=== PATIENT | male | born 1945 | race Caucasian/White ===

== ENCOUNTER 2017-07-10 20:03 | Emergency (ER) | payer MEDICARE ==
[~2017-07-10] VITALS: Ht 185.4 cm; Wt 136.4 kg
[~2017-07-10 20:03] MED LIST: ALTACE10 MG PO; AMLODIPINE5 MG PO; ASPIRIN 8181 MG PO; AUGMENTIN875TAB PO; FINASTERIDE5 MG PO; FISH OIL1000 MG PO; FLOMAX0.4 M1 PO; FLONASE NASAL50 MCG; METOPROL TAR100 MG PO; NAPROSYN500 MG PO; NITROGLYCER0.4 MG SL; OMEPRAZOLE20 M1 PO; SIMVASTATIN20 MG PO
[2017-07-11 01:36] LABS: HEMATOCRIT 44.7 % (39.0-50.0); HEMOGLOBIN 14.7 g/dl (14.0-18.0); IMMATURE GRANULOCYTES 0.5 % (0.0-1.0); MEAN CELL VOLUME 89.9 fL CALC (80.0-100.0); MEAN CORPUSCULAR HGB 29.6 pG CALC (26.0-32.0); MEAN CORPUSCULAR HGB CONC 32.9 g/L CALC (32.0-36.0); NEUT# 11.35 thou/uL (1.82-7.42); RED BLOOD COUNT 4.97 mill/uL (4.70-6.10); RED CELL DISTRI WIDTH 13.2 % (11.5-15.5)
[2017-07-11 02:05] LABS: ALBUMIN 4.7 g/dL (3.2-5.0); ALKALINE PHOSPHATASE 75 u/l (38-126); ANION GAP 19 (6-22 (CALC)); BUN 29 mg/dL (8-23); BUN/CREATININE RATIO 35 (12-20 (CALC)); CALCIUM 9.3 mg/dL (8.4-10.2); CARBON DIOXIDE 26 mmol/l (22-30); CHLORIDE 104 mmol/l (95-108); CREATININE 0.8 mg/dL (0.7-1.3); GFR > 60 ML/MIN (>=60 (CALC)); GFR FOR AFR.AMER. > 60 ML/MIN (>=60 (CALC)); GLUCOSE 129 mg/dL (82-115); POTASSIUM 4.9 mmol/l (3.5-5.1); SGOT/AST 46 u/l (19-48); SGPT/ALT 57 u/l (11-66); SODIUM 143 mmol/l (137-146); TOTAL PROTEIN 7.4 g/dL (6.3-8.2)
[2017-07-11 02:16] VITALS: BP 150/82
== END 2017-07-11 02:16 | disposition short-term general hospital (02) ==
LOC: ED 20:03
PROVIDERS: Emergency Medicine
DX: S22.41XA Multiple fractures of ribs, right side, initial encounter for closed fracture (principal); I72.3 Aneurysm of iliac artery; I10 Essential (primary) hypertension; I25.2 Old myocardial infarction; V19.3XXA Pedal cyclist (driver) (passenger) injured in unspecified nontraffic accident, initial encounter; Y93.55 Activity, bike riding; Y92.410 Unspecified street and highway as the place of occurrence of the external cause

== ENCOUNTER 2018-07-29 09:26 | Emergency (ER) | payer MEDICARE, BC ==
[~2018-07-29] VITALS: Ht 185.4 cm; Wt 136.4 kg
[~2018-07-29 09:26] MED LIST changes: -FLOMAX0.4 M1 PO; +TAMSULOSIN0.4 MG PO
[2018-07-29] MEDS ORDERED: VOLTAREN1%GEL TOP ×2 (10:16→10:25)
[2018-07-29] MEDS ORDERED: CYCLOBENZAPR5 MG PO ×2 (10:16→10:24)
[2018-07-29] MEDS ORDERED: ATORVASTATIN CA40 MG PO (10:22)
[2018-07-29] MEDS ORDERED: CYANOCOBAL1000 MCG/M IJ (10:24)
[2018-07-29 10:30] VITALS: BP 135/75
== END 2018-07-29 10:30 | disposition home or self-care (01) ==
LOC: ED 09:26
DX: S39.012A Strain of muscle, fascia and tendon of lower back, initial encounter (principal); M54.5 Low back pain; G89.29 Other chronic pain; I10 Essential (primary) hypertension; K21.9 Gastro-esophageal reflux disease without esophagitis; I25.2 Old myocardial infarction; X58.XXXA Exposure to other specified factors, initial encounter; Z95.5 Presence of coronary angioplasty implant and graft

== ENCOUNTER 2022-08-08 19:20 | Emergency (ER) | payer MEDICARE, BC ==
[~2022-08-08] VITALS: Ht 185.4 cm; Wt 136.3 kg
[~2022-08-08 19:20] MED LIST changes: +ATORVASTATIN CA40 MG PO; +CYANOCOBAL1000 MCG/M IJ; +CYCLOBENZAPR5 MG PO; +VOLTAREN1%GEL TOP
[2022-08-08 20:47] LABS: URINE BILIRUBIN - DIPSTICK NEGATIVE (NEGATIVE); URINE BLOOD DIPSTICK NEGATIVE (NEGATIVE); URINE COLOR YELLOW; URINE GLUCOSE - DIPSTICK NEGATIVE (NEGATIVE); URINE KETONE NEGATIVE (NEGATIVE); URINE LEUK ESTERASE NEGATIVE (NEGATIVE); URINE PH 5.5 (4.5-8.0); URINE PROTEIN - DIPSTICK NEGATIVE (NEG-TRACE); URINE SPECIFIC GRAVITY >=1.030; URINE UROBILINOGEN - DIPSTICK 0.2 E.U./dL (0.2)
[2022-08-08 20:48] LABS: BASO% 0.3 % (0-3); EOS% 4.1 % (0-8); HEMATOCRIT 38.8 % (39.0-50.0); HEMOGLOBIN 13.1 g/dl (14.0-18.0); IMMATURE GRANULOCYTES 0.1 % (0.0-5.0); LYMPH% 17.4 % (15-41); MEAN CELL VOLUME 90.2 fL CALC (80.0-100.0); MEAN CORPUSCULAR HGB 30.5 pG CALC (26.0-32.0); MEAN CORPUSCULAR HGB CONC 33.8 g/dL CAL (32.0-36.0); MONO% 8.1 % (2-13); NEUT# 5.09 thou/uL (1.82-7.42); RED BLOOD COUNT 4.3 mill/uL (4.70-6.10); RED CELL DISTRI WIDTH 13.4 % (11.5-15.5)
[2022-08-08 20:50] LABS: URINE NITRITE - DIPSTICK NEGATIVE (Negative)
[2022-08-08 20:57] LABS: ALBUMIN 4.4 g/dL (3.2-5.0); ALKALINE PHOSPHATASE 64 u/l (38-126); ANION GAP 12 (6-22 (CALC)); BILIRUBIN, TOTAL 1.5 mg/dL (0.0-1.4); BUN 26 mg/dL (8-23); BUN/CREATININE RATIO 29 (12-20 (CALC)); CARBON DIOXIDE 27 mmol/l (22-30); CHLORIDE 104 mmol/l (95-108); CREATININE 0.9 mg/dL (0.7-1.3); GFR FOR AFR.AMER. > 60 ML/MIN (>=60 (CALC)); GFR OTHER RACES > 60 ML/MIN (>=60 (CALC)); POTASSIUM 3.7 mmol/l (3.5-5.1); SGOT/AST 43 u/l (19-48); SODIUM 139 mmol/l (137-146); TOTAL PROTEIN 7.6 g/dL (6.3-8.2)
[2022-08-08 20:59] LABS: INTERNATIONAL NORMALIZED RATIO 1.2 RATIO (0.7-1.3); PROTHROMBIN TIME 11.4 SECONDS (9.0-12.5)
[2022-08-08 22:51] VITALS: BP 104/62
== END 2022-08-08 23:01 | disposition home or self-care (01) ==
LOC: ED 19:20
PROVIDERS: Emergency Medicine
DX: R55 Syncope and collapse (principal); I10 Essential (primary) hypertension; E78.00 Pure hypercholesterolemia, unspecified; K21.9 Gastro-esophageal reflux disease without esophagitis; I71.40 Abdominal aortic aneurysm, without rupture, unspecified; I25.2 Old myocardial infarction; Z95.5 Presence of coronary angioplasty implant and graft